=== PATIENT | male | born 1965 | race Hispanic/Latino ===

== ENCOUNTER → 2020-08-30 | Day surgery (SDC) | payer OTHER ==
[~2020-08-30] MED LIST: AMLODIPINE BESYL5 MG PO; CLINDAMYCIN 600MG / 50ML 50 ML IV ONE; DEXAMETHASONE SOD PHOS INJ 4 MG/ML VIAL ONE; FENTANYL CITRATE/PF 100MCG/2 ML INJ ONE; LIDOCAINE HCL 2% LOCAL INJ 5 ML SDV VIAL INJ ONE; LISINOPRIL10 MG PO; MIDAZOLAM HCL 2 MG/2 ML VIAL ONE; ONDANSETRON HCL INJ 2MG/ML 2ML 2 MG/ML VIAL ONE; PROPOFOL IV EMULSION 10 MG/ML 20 ML VIAL ONE; SEVOFLURANE INHAL SOLN 250 ML PEN BTL ONE; TRICOR48 MG PO
[2020-08-30 08:45] VITALS: BP 98/49
--- NOTE | 2020-08-30 09:04 | Operative Report ---
DATE OF PROCEDURE: 08/30/2020 SURGEON: Keny Jacinto MD [employer] DR[employer]: Lennox Mendez PA-C. PREOPERATIVE DIAGNOSIS: Right knee medial meniscal tear. POSTOPERATIVE DIAGNOSIS: Right knee medial meniscal tear. PROCEDURE: Right knee arthroscopy, partial medial meniscectomy. INDICATIONS: The patient is a 54-year-old gentleman who has clinic signs and symptoms consistent with a tear of the medial meniscus in his right knee. He has failed conservative management and would like to proceed with arthroscopic intervention. The risks and benefits of the procedure have been discussed at length. All of his questions have been answered. He states he understands and wishes to proceed. PROCEDURE IN DETAIL: The patient was brought to the operating room and placed under general anesthetic. His right lower extremity was prepped and draped in a sterile manner. A preoperative time-out was performed. A tourniquet placed on the upper thigh had been inflated to 300 mmHg. Standard arthroscopy portals were established. The knee was insufflated with sterile saline and systematically inspected. The patellofemoral groove and suprapatellar pouch were unremarkable. The medial and lateral gutters were unremarkable. The cruciate ligaments and lateral compartment were inspected and probed. There was no evidence of any abnormality. There was an obvious tear of the posterior horn of the medial meniscus with a large radial fragment. A combination of biting forceps and a mechanical shaver were used to debride this back to a stable margin. Before and after photographs were taken. The knee was thoroughly irrigated and the arthroscopic instruments were removed. The portal incisions were closed with nylon stitches. A sterile bandage was applied. There was no blood loss and all needle and sponge counts were correct. Keny Jacinto MD DR/MICHELLE /[id number]
== END | disposition home or self-care (01) ==
LOC: OR 06:58
PROVIDERS: ATTEND Specialist
DX: S83.231A Complex tear of medial meniscus, current injury, right knee, initial encounter (principal); I10 Essential (primary) hypertension; E78.00 Pure hypercholesterolemia, unspecified; Z72.0 Tobacco use; X58.XXXA Exposure to other specified factors, initial encounter; Z88.0 Allergy status to penicillin; Z01.810 Encounter for preprocedural cardiovascular examination; Z01.812 Encounter for preprocedural laboratory examination; Z11.59 Encounter for screening for other viral diseases; Z68.34 Body mass index [BMI] 34.0-34.9, adult
CPT/HCPCS: 29881; 93005; J1100; J2001; J2250; J2405; J2704; J3010; U0002

== ENCOUNTER → 2022-02-26 | Day surgery (SDC) | payer BC, OTHER ==
[~2022-02-26] MED LIST changes: +ACETAMINOPHEN 1000 MG/100 ML IV ONE; -CLINDAMYCIN 600MG / 50ML 50 ML IV ONE; +CRESTOR10 MG PO; +DEXAMETHASONE SOD PHOS INJ 4 MG/ML SDV ONE; -DEXAMETHASONE SOD PHOS INJ 4 MG/ML VIAL ONE; +KETOROLAC TROMETHAMINE 30 MG/ML VIAL ONE; -MIDAZOLAM HCL 2 MG/2 ML VIAL ONE; +POVIDONE IODINE 0.05% 0.05 % ML PO ONE; +SODIUM CHLORIDE 0.9% 50ML 50 ML ONE; +VITAMIN PO
[2022-02-26 12:00] VITALS: BP 115/74
== END | disposition home or self-care (01) ==
LOC: OR 08:38
PROVIDERS: ATTEND Specialist
DX: S83.232A Complex tear of medial meniscus, current injury, left knee, initial encounter (principal); I10 Essential (primary) hypertension; X58.XXXA Exposure to other specified factors, initial encounter; Z88.0 Allergy status to penicillin; Z01.810 Encounter for preprocedural cardiovascular examination; Z01.812 Encounter for preprocedural laboratory examination; Z20.822 Contact with and (suspected) exposure to COVID-19; Z79.899 Other long term (current) drug therapy; Z68.33 Body mass index [BMI] 33.0-33.9, adult
CPT/HCPCS: 29881; 93005; J0690; J3010; U0002; J1100; J1885; J2001; J2405